=== PATIENT | male | born 1980 | race Caucasian/White ===

== ENCOUNTER 2016-09-25 22:42 | Inpatient (IN) | payer OTHER ==
[~2016-09-25] VITALS: Ht 182.8 cm; Wt 86.9 kg
[~2016-09-25 22:42] MED LIST: Motrin,Rufen800 MG PO; NORCO 5-325 TA1 EACH PO; PENICILLIN-VK500 MG PO; PRILOSEC20 M1 PO; TRAMADOL HCL50 MG PO; ZOFRAN ODT4 MG SL
[2016-09-25 22:51] VITALS: BP 82/50
[2016-09-25 23:10] LABS: BASO # 0.1 10*3/uL (0.0-0.1); BASO % 0.3 % (0.0-1.0); HEMATOCRIT 46.8 % (42.0-52.0); HEMOGLOBIN 16.3 g/dl (14.0-18.0); IG # 0.2 10*3/uL (0.0-0.1); LYMPH # 1.5 10*3/uL (1.3-4.4); LYMPH % 7.3 % (27.0-41.0); MEAN CELL VOLUME 83.7 fl (80.0-94.0); MEAN CORPUSCULAR HGB 29.2 pg (27.0-31.0); MEAN CORPUSCULAR HGB CONC 34.8 g/dl (33.0-37.0); MEAN PLATELET VOLUME 9.6 fl (9.6-12.3); MONO % 4.7 % (3.0-9.0); NEUT # 18.2 10*3/uL (2.3-7.9); PLATELET COUNT AUTOMATED 304 10*3/uL (130-400); RED BLOOD COUNT 5.59 10*6/uL (4.50-5.90); RED CELL DISTRI WIDTH 12.1 % (0-14.5); WHITE BLOOD COUNT 20.9 10*3/uL (4.8-10.8)
[2016-09-25 23:25] LABS: ALBUMIN 5.1 gm/dl (3.1-4.5); POTASSIUM 4.3 mmol/L (3.5-5.1); TOTAL PROTEIN 8.6 gm/dL (6.4-8.2)
[2016-09-26 00:30] VITALS: BP 121/70
[2016-09-26] MEDS ORDERED: VYVANSE30 MG PO (00:33)
[2016-09-26 02:58] LABS: BILIRUBIN NEGATIVE (NEGATIVE); BLOOD NEGATIVE (NEGATIVE); CLARITY CLOUDY (CLEAR); COLOR YELLOW (YELLOW); GLUCOSE NEGATIVE (NEGATIVE); KETONE 3+ (NEGATIVE); LEUKO ESTERASE NEGATIVE (NEGATIVE); NITRITE NEGATIVE (NEGATIVE); PH 5.5 (5.0-9.0); PROTEIN 2+ (NEGATIVE); SPECIFIC GRAVITY >= 1.030 (1.005-1.030)
[2016-09-26 03:09] LABS: BACTERIA 2+; CALCIUM OXALATE CRYSTALS 2+; URINE REFLEX COMMENT YES (NO)
[2016-09-26 06:07] LABS: BASO % 0.2 % (0.0-1.0); IG # 0.1 10*3/uL (0.0-0.1); LYMPH # 1.4 10*3/uL (1.3-4.4); LYMPH % 8.3 % (27.0-41.0); MEAN CELL VOLUME 84.4 fl (80.0-94.0); MEAN CORPUSCULAR HGB 29.2 pg (27.0-31.0); MEAN CORPUSCULAR HGB CONC 34.6 g/dl (33.0-37.0); MONO # 0.4 10*3/uL (0.1-1.0); MONO % 2.3 % (3.0-9.0); NEUT # 14.7 10*3/uL (2.3-7.9); NEUT % 88.5 % (47.0-73.0); PLATELET COUNT AUTOMATED 256 10*3/uL (130-400); RED BLOOD COUNT 4.73 10*6/uL (4.50-5.90); RED CELL DISTRI WIDTH 12.2 % (0-14.5); WHITE BLOOD COUNT 16.6 10*3/uL (4.8-10.8)
[2016-09-26 06:10] LABS: HEMATOCRIT 39.9 % (42.0-52.0); HEMOGLOBIN 13.8 g/dl (14.0-18.0)
[2016-09-26 06:29] LABS: INTERNATIONAL NORM RATIO 1.1 (2.0-3.5)
[2016-09-26 06:30] LABS: BILIRUBIN, TOTAL 0.8 mg/dl (0.2-1.0); MAGNESIUM 2.1 mg/dL (1.5-2.1); PHOSPHOROUS 3.1 mg/dL (2.5-4.9)
[2016-09-26 07:39] LABS: VITAMIN D, 25-HYDROXY 28.1 ng/mL (30-100)
[2016-09-26 07:40] LABS: FOLIC ACID 7.64 ng/mL (>5.38)
[2016-09-26 07:56] LABS: HEMOGLOBIN A1c 5.5 % (4.8-5.6)
[2016-09-26 08:00] VITALS: BP 108/71
[2016-09-26 12:00] VITALS: BP 107/80
[2016-09-26 13:59] LABS: URINE AMPHETAMINES > 1000 (1000ng/ml); URINE BARBITURATES < 200 (200ng/ml); URINE COCAINE < 300 (300ng/ml)
[2016-09-26 14:10] LABS: URINE TP/CRE RATIO 0.1 (<0.21)
[2016-09-26 16:00] VITALS: BP 128/73
[2016-09-26 20:00] VITALS: BP 118/66
[2016-09-27] VITALS: BP 121/74
[2016-09-27 04:00] VITALS: BP 125/73
[2016-09-27 06:31] LABS: BASO % 0.3 % (0.0-1.0); EOS % 0.2 % (1.0-4.0); HEMATOCRIT 36.3 % (42.0-52.0); HEMOGLOBIN 12.5 g/dl (14.0-18.0); LYMPH % 18.3 % (27.0-41.0); MEAN CELL VOLUME 86.8 fl (80.0-94.0); MEAN CORPUSCULAR HGB 29.9 pg (27.0-31.0); MEAN CORPUSCULAR HGB CONC 34.4 g/dl (33.0-37.0); MEAN PLATELET VOLUME 9.6 fl (9.6-12.3); MONO # 0.9 10*3/uL (0.1-1.0); NEUT % 72.8 % (47.0-73.0); PLATELET COUNT AUTOMATED 224 10*3/uL (130-400); RED BLOOD COUNT 4.18 10*6/uL (4.50-5.90); RED CELL DISTRI WIDTH 12.6 % (0-14.5); WHITE BLOOD COUNT 10.9 10*3/uL (4.8-10.8)
[2016-09-27 06:55] LABS: BUN 24 mg/dl (7-24); CARBON DIOXIDE 26 mmol/L (21-32); CHLORIDE 106 mmol/L (98-107); CPK 173 U/L (39-308); EST GLOM FILT AFRICAN AMERICAN > 60 ml/min; GLUCOSE 108 mg/dL (65-99); POTASSIUM 3.7 mmol/L (3.5-5.1); SODIUM 142 mmol/L (136-145)
[2016-09-27] MEDS ORDERED: D-1000 185 MG-11 TAB PO (10:10)
[2016-09-27 10:12] VITALS: BP 128/79
== END 2016-09-27 11:43 | disposition home or self-care (01) | DRG 682 ==
LOC: ED 22:42 → EDHOLD 23:43 → 5E 23:43
PROVIDERS: Internal Medicine; Internal Medicine Hospice and Palliative Medicine; Physician Assistant
DX: N17.0 Acute kidney failure with tubular necrosis (principal); R65.11 Systemic inflammatory response syndrome (SIRS) of non-infectious origin with acute organ dysfunction; R57.1 Hypovolemic shock; E55.9 Vitamin D deficiency, unspecified; F90.9 Attention-deficit hyperactivity disorder, unspecified type; F12.90 Cannabis use, unspecified, uncomplicated; Z79.899 Other long term (current) drug therapy

== ENCOUNTER 2017-07-12 19:08 | Emergency (ER) | payer OTHER ==
[~2017-07-12] VITALS: Ht 182.8 cm; Wt 97.5 kg
[~2017-07-12 19:08] MED LIST changes: +D-1000 185 MG-11 TAB PO; +VYVANSE30 MG PO
[2017-07-12 19:36] LABS: BASO % 0.4 % (0.0-1.0); EOS # 0.1 10*3/uL (0.0-0.4); EOS % 1.3 % (1.0-4.0); HEMATOCRIT 45.3 % (42.0-52.0); HEMOGLOBIN 15.1 g/dl (14.0-18.0); LYMPH # 2.7 10*3/uL (1.3-4.4); MEAN CELL VOLUME 86.6 fl (80.0-94.0); MEAN CORPUSCULAR HGB 28.9 pg (27.0-31.0); MEAN CORPUSCULAR HGB CONC 33.3 g/dl (33.0-37.0); MEAN PLATELET VOLUME 9.7 fl (9.6-12.3); MONO # 0.6 10*3/uL (0.1-1.0); MONO % 5.7 % (3.0-9.0); NEUT # 7.2 10*3/uL (2.3-7.9); NEUT % 67.2 % (47.0-73.0); PLATELET COUNT AUTOMATED 280 10*3/uL (130-400); RED BLOOD COUNT 5.23 10*6/uL (4.50-5.90); RED CELL DISTRI WIDTH 12.1 % (0-14.5); WHITE BLOOD COUNT 10.7 10*3/uL (4.8-10.8)
[2017-07-12 19:54] LABS: ALBUMIN 3.7 gm/dl (3.1-4.5); ALKALINE PHOSPHATASE 77 U/L (45-117); BUN 18 mg/dl (7-24); CHLORIDE 103 mmol/L (98-107); CREATININE 1.35 mg/dL (0.70-1.30); POTASSIUM 4.5 mmol/L (3.5-5.1); SGOT/AST 19 IU/L (3-35); SGPT/ALT 38 U/L (12-78); SODIUM 138 mmol/L (136-145)
[2017-07-12 20:00] LABS: TROPONIN I < 0.015 ng/ml (<0.045)
== END 2017-07-12 20:38 | disposition home or self-care (01) ==
LOC: ED 19:08
PROVIDERS: Student in an Organized Health Care Education/Training Program
DX: R55 Syncope and collapse (principal); F12.10 Cannabis abuse, uncomplicated; F90.9 Attention-deficit hyperactivity disorder, unspecified type; Z79.899 Other long term (current) drug therapy; Z90.89 Acquired absence of other organs

== ENCOUNTER 2020-09-11 10:35 | Emergency (ER) | payer OTHER ==
[~2020-09-11] VITALS: Wt 117.9 kg
[~2020-09-11 10:35] MED LIST changes: +AMOXICILLIN500 M2 PO
== END 2020-09-11 14:14 | disposition home or self-care (01) ==
LOC: ED 10:35
DX: R51.9 Headache, unspecified (principal); Z79.899 Other long term (current) drug therapy; Z98.890 Other specified postprocedural states

== ENCOUNTER 2023-04-24 15:42 | Emergency (ER) | payer OTHER ==
[~2023-04-24] VITALS: Ht 182.8 cm; Wt 108.9 kg
[2023-04-24 16:36] LABS: BASO # 0.1 10*3/uL (0.0-0.1); BASO % 0.4 % (0.0-1.0); EOS % 0.3 % (1.0-4.0); HEMATOCRIT 49.6 % (42.0-52.0); LYMPH # 2.2 10*3/uL (1.3-4.4); LYMPH % 14.3 % (27.0-41.0); MEAN CELL VOLUME 88.4 fl (80.0-94.0); MEAN CORPUSCULAR HGB 29.1 pg (27.0-31.0); MEAN CORPUSCULAR HGB CONC 32.9 g/dl (33.0-37.0); MEAN PLATELET VOLUME 9.7 fl (9.6-12.3); MONO # 1.1 10*3/uL (0.1-1.0); NEUT # 12.1 10*3/uL (2.3-7.9); NEUT % 77.4 % (47.0-73.0); PLATELET COUNT AUTOMATED 260 10*3/uL (130-400); RED BLOOD COUNT 5.61 10*6/uL (4.50-5.90); RED CELL DISTRI WIDTH 12.1 % (0-14.5); WHITE BLOOD COUNT 15.6 10*3/uL (4.8-10.8)
[2023-04-24 16:47] LABS: ACT PARTIAL THROMBO TIME 21.5 SECONDS (20.0-32.1)
[2023-04-24 17:03] LABS: ALKALINE PHOSPHATASE 82 U/L (46-116); BUN 10 mg/dl (9-23); CHLORIDE 107 mmol/L (98-107); POTASSIUM 3.6 mmol/L (3.4-5.1); SGPT/ALT 40 U/L (5-49); TOTAL PROTEIN 7.4 gm/dL (6.0-8.0)
[2023-04-24 17:04] LABS: ETHYL ALCOHOL < 3.0 mg/dl (<3)
[2023-04-24 18:30] LABS: BILIRUBIN Negative (Negative); BLOOD Trace-Lysed (Negative); CLARITY Clear (Clear); COLOR Yellow (Yellow); GLUCOSE Negative (Negative); KETONE 1+ (Negative); LEUKO ESTERASE Negative (Negative); NITRITE Negative (Negative)
[2023-04-24 18:37] LABS: URINE AMPHETAMINES Positive (1000ng/ml); URINE BARBITURATES Negative (200ng/ml); URINE BENZODIAZEPINES Negative (200ng/ml); URINE CANNABINOIDS (THC) Positive (50ng/ml); URINE COCAINE Negative (300ng/ml); URINE METHADONE Negative (300ng/ml); URINE OPIATES Negative (300ng/ml); URINE PHENCYCLIDINE Negative (25ng/ml)
[2023-04-24 18:56] LABS: BACTERIA 1+
[2023-04-24] MEDS ORDERED: VYVANSE20 MG PO (19:49)
== END 2023-04-24 21:46 | disposition home or self-care (01) ==
LOC: ED 15:42
PROVIDERS: Family Medicine
DX: N17.9 Acute kidney failure, unspecified (principal); F90.9 Attention-deficit hyperactivity disorder, unspecified type; G93.41 Metabolic encephalopathy; F12.90 Cannabis use, unspecified, uncomplicated; Z90.89 Acquired absence of other organs; R10.2 Pelvic and perineal pain; Z79.899 Other long term (current) drug therapy